=== PATIENT | female | born 1985 ===

== ENCOUNTER 2017-02-11 07:45 | Day surgery (SDC) | payer BC ==
[~2017-02-11] VITALS: Ht 162.6 cm; Wt 76.7 kg
[~2017-02-11 07:45] MED LIST: ASAB PO; HYGROTON 25 MG25 MG PO; LOESTRIN 21 PO; NIFEDIAC CC60 MG PO
[2017-02-11 08:42] LABS: BASOPHILS 0.5 %; BASOPHILS ABSOLUTE 0.05 10/3/uL (0.0-0.16); EOSINOPHILS 0.8 %; EOSINOPHILS ABSOLUTE 0.08 10/3/uL (0.0-0.53); HEMATOCRIT 38.5 % (36.0-48.0); HEMOGLOBIN 13.8 g/dL (12.0-16.0); IMMATURE GRANULOCYTES 0.4 %; IMMATURE GRANULOCYTES ABSOLUTE 0.04 10/3/uL (0.0-0.11); LYMPHOCYTES 35.1 %; LYMPHOCYTES ABSOLUTE 3.36 10/3/uL (0.67-4.30); MANUAL DIFF NO %; MEAN CORPUS HGB CONC 35.8 g/dL (32.0-36.0); MEAN CORPUSCULAR HEMOGLOB 31.8 pg (26.0-34.0); MEAN CORPUSCULAR VOLUME 88.7 fL (80-100); MEAN PLATELET VOLUME 9.8 fL (9.2-13.0); MONOCYTES 7.4 %; MONOCYTES ABSOLUTE 0.71 10/3/uL (0.21-1.20); NEUTROPHILS 55.8 %; NEUTROPHILS ABSOLUTE 5.34 10/3/uL (2.02-8.40); PLATELET COUNT 584 10/3/uL (150-400); RBC DISTRIBUTION WIDTH 12.8 % (12.0-16.0); RED CELL COUNT 4.34 10/6/uL (4.0-5.6); RETICULOCYTE COUNT 4.6 % (0.5-2.5); RETICULOCYTE COUNT ABSOLUTE 201.4 10/3/uL (20.2-119.8); WHITE BLOOD CELLS 9.6 10/3/uL (4.5-10.5)
[2017-02-11 08:54] LABS: CALCIUM, SERUM 9.4 MG/DL (8.5-10.4); CHLORIDE, SERUM 100 MMOL/L (96-112); CO2 (CARBON DIOXIDE) 27 MMOL/L (24-34); CREATININE 0.75 MG/DL (0.55-1.02); GFR AFRICAN AMERICAN 124 ML/MIN (>=60); GFR NON AFRICAN AMERICAN 107 ML/MIN (>=60); GLUCOSE, SERUM 105 MG/DL (60-99); SODIUM, SERUM 139 MMOL/L (135-148)
[2017-02-11 08:56] LABS: BUN (BLOOD UREA NITROGEN) 15 MG/DL (6-23); POTASSIUM, SERUM 2.6 MMOL/L (3.5-5.3)
== END 2017-02-11 11:44 | disposition home or self-care (01) ==
LOC: SDC 07:45
PROVIDERS: Anesthesiology; Pathology Cytopathology
PROC: 07DR3ZX Extraction of Iliac Bone Marrow, Percutaneous Approach, Diagnostic (ICD-10-PCS; principal; 2017-02-11 10:00)
DX: D45 Polycythemia vera (principal); I10 Essential (primary) hypertension; Z90.710 Acquired absence of both cervix and uterus; Z79.82 Long term (current) use of aspirin; Z79.899 Other long term (current) drug therapy; Z98.890 Other specified postprocedural states
CPT/HCPCS: 80048; 84703; 85025; 85045; 88305; 88311; 88313; 88360